=== PATIENT | male | born 1940 | race African-American/Black ===

== ENCOUNTER 2021-01-17 23:45 | Inpatient (IN) ==
[2021-01-18] MEDS ORDERED: SODIUM CHLORIDE 0.9% 500 ML IV STA (00:28)
[2021-01-18 01:59] LABS: Bacteria,Urine Occasional /HPF (Few); Bilirubin,Urine Negative (Negative); Blood, Urine Moderate mg/dL (Negative); Glucose,Urine (UA) Negative (Negative); Hyaline Casts,Urine 6 /LPF (0-3); Ketones,Urine Negative (Negative); Mucus,Urine Occasional /LPF (Occasional); Nitrite,Urine Negative (Negative); Protein,Urine 30 MG/DL; RBC,Urine 76 /HPF (0-4); Urine Appearance CLOUDY (Clear); Urine Color Yellow (Yellow); Urine Specific Gravity 1.017 (1.001-1.035); Urine Urobilinogen < 2.0 EU/DL (0.2-1.0)
[2021-01-18 02:09] LABS: Basophils # 0.1 10*3/uL (0.0-0.2); Basophils % 0.3 % (0.0-0.8); Eosinophils # 0.1 10*3/uL (0.0-0.87); Eosinophils % 0.7 % (0.00-10.9); Hematocrit 55.5 VOL% (42.0-52.0); Hemoglobin 16.3 GM/DL (14.0-18.0); Immature Granulocytes % 0.4 %; Immature Granulocytes Absolute 0.07 #; Lymphocytes # 2.6 10*3/uL (1.4-4.0); Lymphocytes % 16.3 % (21.2-54.2); Mean Corpuscular HGB Conc 29.4 GM/DL (32-36); Mean Platelet Volume 11.5 FL (9.6-12.0); Monocytes % 7.4 % (1.7-12.7); Neutrophils % 74.9 % (38.7-73.9); Platelet Count 327 T/CUMM (130-400); Red Blood Count 6.03 MC/CUMM (3.8-5.5); Red Cell Distribution Width 18.9 % (9.3-17.3); White Blood Count 15.9 T/CUMM (4-12)
[2021-01-18 02:11] LABS: Alanine Aminotransferase 145 U/L (16-61); Albumin 3.1 G/DL (3.4-5.0); Alkaline Phosphatase 102 U/L (45-117); Aspartate Amino Transferase 89 U/L (0-37); Blood Urea Nitrogen 117 MG/DL (7-18); Calcium 9.7 MG/DL (8.5-10.1); Carbon Dioxide 24 MMOL/L (21-32); Estimated Glom Filtration Rate 28 ML/MIN; Glucose 123 MG/DL (74-106); Osmolality,Calculated 362.9 MOS/KG (273-304); Potassium 4.4 MMOL/L (3.5-5.1); Total Protein 9.7 G/DL (6.4-8.2)
[2021-01-18 02:24] LABS: Barbiturates Screen,Urine Negative (Negative); Benzodiazepines Screen,Urine Negative (Negative); Cannabinoid Screen,Urine Negative (Negative); Opiate Screen,Urine Negative (Negative); Phencyclidine Screen,Urine Negative (Negative)
[2021-01-18 02:32] LABS: Sodium 165 MMOL/L (136-145)
[2021-01-18] MEDS ORDERED: LACTATED RINGERS 2,000 ML IV ONE (03:50)
[2021-01-18] MEDS ORDERED: ALBUTEROL 2.5 MG/3 ML NEB RESP TX PRN (03:53)
[2021-01-18] MEDS ORDERED: ONDANSETRON 4 MG/2 ML VIAL IV PRN (03:53)
[2021-01-18] MEDS ORDERED: GLUCAGON 1 MG VIAL IM PRN (03:55)
[2021-01-18] MEDS ORDERED: DEXTROSE 50% 25 GM/50 ML VIAL IV PRN (03:55)
[2021-01-18] MEDS: MEROPENEM 500 MG in SODIUM CHLORIDE 0.9% 100 ML IV SCH ×3 (04:14→20:55)
[2021-01-18] MEDS: LEVOFLOXACIN INJ 750 MG/150 ML PREMIX IV SCH (04:43)
[2021-01-18] MEDS: SODIUM CHLORIDE 0.45% 1,000 ML IV SCH ×2 (06:47→18:03)
[2021-01-18] MEDS: FAMOTIDINE 20 MG/2 ML VIAL IV SCH ×2 (09:59→20:55)
[2021-01-18] MEDS: ATORVASTATIN 80 MG TABLET PER TUBE SCH (11:18)
[2021-01-18] MEDS: ASPIRIN 325 MG TABLET PER TUBE SCH (11:18)
[2021-01-18] MEDS: CLOPIDOGREL 75 MG TABLET PER TUBE SCH (11:18)
[2021-01-19] MEDS: SODIUM CHLORIDE 0.45% 1,000 ML IV SCH (01:45)
[2021-01-19 04:09] LABS: Basophils % 0.3 % (0.0-0.8); Eosinophils # 0.2 10*3/uL (0.0-0.87); Eosinophils % 2.2 % (0.00-10.9); Hematocrit 42.4 VOL% (42.0-52.0); Immature Granulocytes % 0.4 %; Immature Granulocytes Absolute 0.05 #; Lymphocytes # 1.7 10*3/uL (1.4-4.0); Lymphocytes % 15.4 % (21.2-54.2); Mean Corpuscular HGB Conc 30.7 GM/DL (32-36); Mean Platelet Volume 11.4 FL (9.6-12.0); Monocytes % 6.8 % (1.7-12.7); Neutrophils % 74.9 % (38.7-73.9); Red Cell Distribution Width 17.7 % (9.3-17.3)
[2021-01-19 04:17] LABS: Platelet Count 233 T/CUMM (130-400); Red Blood Count 4.61 MC/CUMM (3.8-5.5); White Blood Count 11.1 T/CUMM (4-12)
[2021-01-19] MEDS: MEROPENEM 500 MG in SODIUM CHLORIDE 0.9% 100 ML IV SCH ×3 (04:35→20:05)
[2021-01-19 04:36] LABS: Calcium 8.7 MG/DL (8.5-10.1); Osmolality,Calculated 354.3 MOS/KG (273-304); Potassium 3.3 MMOL/L (3.5-5.1)
[2021-01-19] MEDS ORDERED: POTASSIUM CHLORIDE RIDER 10 MEQ/100 ML PREMIX IV PRN (05:03)
[2021-01-19] MEDS ORDERED: POTASSIUM CHLORIDE RIDER 20 MEQ/100 ML PREMIX IV PRN (05:03)
[2021-01-19] MEDS: POTASSIUM CHLORIDE RIDER 10 MEQ/100 ML PREMIX IV PRN ×4 (05:49→10:31)
[2021-01-19] MEDS: DEXTROSE 5% 1,000 ML IV SCH ×2 (05:50→19:59)
[2021-01-19] MEDS: FAMOTIDINE 20 MG/2 ML VIAL IV SCH ×2 (10:32→20:00)
[2021-01-19] MEDS: ATORVASTATIN 80 MG TABLET PER TUBE SCH (11:48)
[2021-01-19] MEDS: CLOPIDOGREL 75 MG TABLET PER TUBE SCH (11:49)
[2021-01-19] MEDS: ASPIRIN 325 MG TABLET PER TUBE SCH (11:49)
[2021-01-19] MEDS: carvediloL 3.125 MG TABLET PO SCH (21:50)
[2021-01-19] MEDS: MORPHINE 2 MG/1 ML SYRINGE IV PRN (21:54)
[2021-01-19] MEDS ORDERED: hydrALAZINE 20 MG/1 ML VIAL IV PRN (22:30)
[2021-01-20] MEDS: MEROPENEM 500 MG in SODIUM CHLORIDE 0.9% 100 ML IV SCH ×2 (04:20→11:36)
[2021-01-20] MEDS: LEVOFLOXACIN INJ 750 MG/150 ML PREMIX IV SCH (04:20)
[2021-01-20 06:35] LABS: Basophils % 0.1 % (0.0-0.8); Eosinophils # 0.2 10*3/uL (0.0-0.87); Eosinophils % 2.1 % (0.00-10.9); Hematocrit 41.3 VOL% (42.0-52.0); Immature Granulocytes % 0.5 %; Immature Granulocytes Absolute 0.05 #; Lymphocytes # 2.1 10*3/uL (1.4-4.0); Lymphocytes % 19.5 % (21.2-54.2); Mean Corpuscular HGB Conc 31.5 GM/DL (32-36); Mean Corpuscular Volume 89.6 FL (87-102); Mean Platelet Volume 11.3 FL (9.6-12.0); Monocytes % 6.8 % (1.7-12.7); Platelet Count 190 T/CUMM (130-400); Red Blood Count 4.61 MC/CUMM (3.8-5.5); Red Cell Distribution Width 17.2 % (9.3-17.3); White Blood Count 10.7 T/CUMM (4-12)
[2021-01-20 07:00] LABS: Calcium 8.8 MG/DL (8.5-10.1); Potassium 3.5 MMOL/L (3.5-5.1)
[2021-01-20] MEDS: POTASSIUM CHLORIDE RIDER 10 MEQ/100 ML PREMIX IV PRN (07:48)
[2021-01-20] MEDS: carvediloL 3.125 MG TABLET PO SCH ×2 (08:54→21:30)
[2021-01-20] MEDS: amLODIPine 5 MG TABLET PO SCH (08:54)
[2021-01-20] MEDS: ASPIRIN 325 MG TABLET PER TUBE SCH (08:54)
[2021-01-20] MEDS: CLOPIDOGREL 75 MG TABLET PER TUBE SCH (08:54)
[2021-01-20] MEDS: ATORVASTATIN 80 MG TABLET PER TUBE SCH (08:54)
[2021-01-20] MEDS: FAMOTIDINE 20 MG/2 ML VIAL IV SCH ×2 (08:55→21:30)
[2021-01-20] MEDS: POTASSIUM CHLORIDE 20 MEQ PACK PER TUBE PRN ×2 (09:45→11:25)
[2021-01-20] MEDS: TAMSULOSIN 0.4 MG CAPSULE PO SCH (11:25)
[2021-01-20] MEDS: AMPICILLIN INJ 500 MG in SODIUM CHLORIDE 0.9% 100 ML IV SCH ×2 (16:00→23:14)
[2021-01-21] MEDS: AMPICILLIN INJ 500 MG in SODIUM CHLORIDE 0.9% 100 ML IV SCH ×4 (05:25→22:42)
[2021-01-21 05:26] LABS: Basophils % 0.1 % (0.0-0.8); Eosinophils # 0.2 10*3/uL (0.0-0.87); Eosinophils % 2.4 % (0.00-10.9); Hematocrit 38.7 VOL% (42.0-52.0); Immature Granulocytes % 0.6 %; Immature Granulocytes Absolute 0.06 #; Lymphocytes # 2.4 10*3/uL (1.4-4.0); Lymphocytes % 25.2 % (21.2-54.2); Mean Platelet Volume 11.7 FL (9.6-12.0); Monocytes % 5.9 % (1.7-12.7); Neutrophils % 65.8 % (38.7-73.9); Platelet Count 171 T/CUMM (130-400); Red Cell Distribution Width 16.9 % (9.3-17.3); White Blood Count 9.5 T/CUMM (4-12)
[2021-01-21] MEDS: MORPHINE 2 MG/1 ML SYRINGE IV PRN (05:35)
[2021-01-21 05:55] LABS: Calcium 8.4 MG/DL (8.5-10.1); Osmolality,Calculated 303.3 MOS/KG (273-304); Potassium 3.8 MMOL/L (3.5-5.1)
[2021-01-21] MEDS: TAMSULOSIN 0.4 MG CAPSULE PO SCH (06:30)
[2021-01-21] MEDS: CLOPIDOGREL 75 MG TABLET PER TUBE SCH (10:12)
[2021-01-21] MEDS: amLODIPine 5 MG TABLET PO SCH (10:12)
[2021-01-21] MEDS: ASPIRIN 325 MG TABLET PER TUBE SCH (10:12)
[2021-01-21] MEDS: FAMOTIDINE 20 MG/2 ML VIAL IV SCH ×2 (10:12→21:46)
[2021-01-21] MEDS: carvediloL 3.125 MG TABLET PO SCH ×2 (10:12→21:46)
[2021-01-21] MEDS: ATORVASTATIN 80 MG TABLET PER TUBE SCH (10:16)
[2021-01-22] MEDS: AMPICILLIN INJ 500 MG in SODIUM CHLORIDE 0.9% 100 ML IV SCH ×2 (04:19→12:02)
[2021-01-22] MEDS: LEVOFLOXACIN INJ 750 MG/150 ML PREMIX IV SCH (04:55)
[2021-01-22 05:34] LABS: Basophils % 0.2 % (0.0-0.8); Eosinophils # 0.3 10*3/uL (0.0-0.87); Eosinophils % 2.4 % (0.00-10.9); Hematocrit 37.9 VOL% (42.0-52.0); Hemoglobin 11.9 GM/DL (14.0-18.0); Immature Granulocytes % 0.4 %; Immature Granulocytes Absolute 0.04 #; Lymphocytes # 2.5 10*3/uL (1.4-4.0); Mean Corpuscular HGB Conc 31.4 GM/DL (32-36); Mean Corpuscular Volume 86.7 FL (87-102); Monocytes % 6.6 % (1.7-12.7); Neutrophils % 66.4 % (38.7-73.9); Platelet Count 158 T/CUMM (130-400); Red Blood Count 4.37 MC/CUMM (3.8-5.5); Red Cell Distribution Width 16.5 % (9.3-17.3); White Blood Count 10.3 T/CUMM (4-12)
[2021-01-22 06:03] LABS: Calcium 8.3 MG/DL (8.5-10.1); Potassium 3.6 MMOL/L (3.5-5.1)
[2021-01-22] MEDS: FAMOTIDINE 20 MG/2 ML VIAL IV SCH ×2 (09:14→21:50)
[2021-01-22] MEDS: CLOPIDOGREL 75 MG TABLET PER TUBE SCH (09:14)
[2021-01-22] MEDS: carvediloL 3.125 MG TABLET PO SCH (09:14)
[2021-01-22] MEDS: ASPIRIN 325 MG TABLET PER TUBE SCH (09:14)
[2021-01-22] MEDS: ATORVASTATIN 80 MG TABLET PER TUBE SCH (09:14)
[2021-01-22] MEDS: TAMSULOSIN 0.4 MG CAPSULE PO SCH (09:15)
[2021-01-22] MEDS: amLODIPine 5 MG TABLET PO SCH (09:15)
[2021-01-22] MEDS ORDERED: PIPERACILLIN/TAZOBACTAM 3,375 MG in SODIUM CHLORIDE 0.9% 100 ML IV SCH (12:00)
[2021-01-22] MEDS: PIPERACILLIN/TAZOBACTAM 3,375 MG in SODIUM CHLORIDE 0.9% 100 ML IV SCH (21:51)
[2021-01-23] MEDS: carvediloL 3.125 MG TABLET PO SCH ×3 (01:01→20:36)
[2021-01-23] MEDS: PIPERACILLIN/TAZOBACTAM 3,375 MG in SODIUM CHLORIDE 0.9% 100 ML IV SCH ×3 (05:20→20:37)
[2021-01-23 05:39] LABS: Basophils % 0.2 % (0.0-0.8); Eosinophils # 0.2 10*3/uL (0.0-0.87); Eosinophils % 1.9 % (0.00-10.9); Hematocrit 38.7 VOL% (42.0-52.0); Hemoglobin 12.8 GM/DL (14.0-18.0); Immature Granulocytes % 1.1 %; Immature Granulocytes Absolute 0.11 #; Lymphocytes % 19.4 % (21.2-54.2); Mean Corpuscular HGB Conc 33.1 GM/DL (32-36); Mean Corpuscular Volume 84.1 FL (87-102); Mean Platelet Volume 11.4 FL (9.6-12.0); Monocytes % 6.3 % (1.7-12.7); Neutrophils % 71.1 % (38.7-73.9); Platelet Count 157 T/CUMM (130-400); White Blood Count 10.2 T/CUMM (4-12)
[2021-01-23 06:01] LABS: Bilirubin,Total 1.2 MG/DL (0.20-1.00); Calcium 8.3 MG/DL (8.5-10.1); Osmolality,Calculated 286.1 MOS/KG (273-304); Potassium 3.4 MMOL/L (3.5-5.1); Total Protein 7.4 G/DL (6.4-8.2)
[2021-01-23] MEDS: ASPIRIN 325 MG TABLET PER TUBE SCH (09:26)
[2021-01-23] MEDS: TAMSULOSIN 0.4 MG CAPSULE PO SCH (09:26)
[2021-01-23] MEDS: ATORVASTATIN 80 MG TABLET PER TUBE SCH (09:26)
[2021-01-23] MEDS: CLOPIDOGREL 75 MG TABLET PER TUBE SCH (09:26)
[2021-01-23] MEDS: FAMOTIDINE 20 MG/2 ML VIAL IV SCH ×2 (09:26→20:37)
[2021-01-23] MEDS: amLODIPine 5 MG TABLET PO SCH (09:26)
[2021-01-23] MEDS: POTASSIUM CHLORIDE 20 MEQ PACK PER TUBE PRN ×2 (09:26→12:59)
[2021-01-24] MEDS: PIPERACILLIN/TAZOBACTAM 3,375 MG in SODIUM CHLORIDE 0.9% 100 ML IV SCH ×2 (04:26→13:42)
[2021-01-24 07:08] LABS: Basophils % 0.1 % (0.0-0.8); Eosinophils # 0.1 10*3/uL (0.0-0.87); Eosinophils % 1.2 % (0.00-10.9); Hematocrit 37.5 VOL% (42.0-52.0); Hemoglobin 12.5 GM/DL (14.0-18.0); Immature Granulocytes % 0.4 %; Immature Granulocytes Absolute 0.04 #; Lymphocytes # 2.1 10*3/uL (1.4-4.0); Lymphocytes % 20.5 % (21.2-54.2); Mean Corpuscular HGB Conc 33.3 GM/DL (32-36); Mean Corpuscular Volume 83.1 FL (87-102); Mean Platelet Volume 11.6 FL (9.6-12.0); Monocytes % 7.1 % (1.7-12.7); Neutrophils % 70.7 % (38.7-73.9); Platelet Count 172 T/CUMM (130-400); Red Blood Count 4.51 MC/CUMM (3.8-5.5); Red Cell Distribution Width 16.3 % (9.3-17.3); White Blood Count 10.4 T/CUMM (4-12)
[2021-01-24 07:45] LABS: Calcium 8.5 MG/DL (8.5-10.1); Osmolality,Calculated 282.3 MOS/KG (273-304); Potassium 3.6 MMOL/L (3.5-5.1)
[2021-01-24] MEDS: ASPIRIN 325 MG TABLET PER TUBE SCH (10:19)
[2021-01-24] MEDS: amLODIPine 5 MG TABLET PO SCH (10:19)
[2021-01-24] MEDS: TAMSULOSIN 0.4 MG CAPSULE PO SCH (10:19)
[2021-01-24] MEDS: CLOPIDOGREL 75 MG TABLET PER TUBE SCH (10:19)
[2021-01-24] MEDS: carvediloL 3.125 MG TABLET PO SCH ×2 (10:19→21:33)
[2021-01-24] MEDS: ATORVASTATIN 80 MG TABLET PER TUBE SCH (10:19)
[2021-01-24] MEDS: FAMOTIDINE 20 MG/2 ML VIAL IV SCH ×2 (10:22→21:32)
[2021-01-24] MEDS: LEVOFLOXACIN INJ 500 MG/100 ML PREMIX IV SCH (18:49)
[2021-01-25 06:41] LABS: Basophils % 0.2 % (0.0-0.8); Eosinophils # 0.1 10*3/uL (0.0-0.87); Hematocrit 37.6 VOL% (42.0-52.0); Hemoglobin 12.4 GM/DL (14.0-18.0); Immature Granulocytes % 0.4 %; Immature Granulocytes Absolute 0.04 #; Lymphocytes # 2.1 10*3/uL (1.4-4.0); Lymphocytes % 20.9 % (21.2-54.2); Mean Corpuscular Volume 85.1 FL (87-102); Mean Platelet Volume 11.7 FL (9.6-12.0); Monocytes % 8.7 % (1.7-12.7); Neutrophils % 68.8 % (38.7-73.9); Platelet Count 185 T/CUMM (130-400); Red Blood Count 4.42 MC/CUMM (3.8-5.5); Red Cell Distribution Width 16.6 % (9.3-17.3); White Blood Count 10.1 T/CUMM (4-12)
[2021-01-25 07:51] LABS: Albumin 1.9 G/DL (3.4-5.0); Bilirubin,Total 1.3 MG/DL (0.20-1.00); Calcium 8.7 MG/DL (8.5-10.1); Potassium 3.9 MMOL/L (3.5-5.1); Total Protein 7.7 G/DL (6.4-8.2)
[2021-01-25 10:14] LABS: Hepatitis B Surface Ag Quant < 0.10 Index; Hepatitis B Surface Ag Result Non-Reactive (NonReactive); Hepatitis C Virus Ab Quant 0.16 Index; Hepatitis C Virus Ab Result Non-Reactive (NonReactive)
[2021-01-25] MEDS: TAMSULOSIN 0.4 MG CAPSULE PO SCH (10:15)
[2021-01-25] MEDS: amLODIPine 5 MG TABLET PO SCH (10:16)
[2021-01-25] MEDS: carvediloL 3.125 MG TABLET PO SCH ×2 (10:16→20:57)
[2021-01-25] MEDS: CLOPIDOGREL 75 MG TABLET PER TUBE SCH (10:16)
[2021-01-25] MEDS: ASPIRIN 325 MG TABLET PER TUBE SCH (10:16)
[2021-01-25] MEDS: FAMOTIDINE 20 MG/2 ML VIAL IV SCH ×2 (10:24→20:58)
[2021-01-25] MEDS: MORPHINE 2 MG/1 ML SYRINGE IV PRN (10:26)
[2021-01-25] MEDS ORDERED: DEXTROSE 50% 25 GM/50 ML VIAL IV PRN (11:00)
[2021-01-25] MEDS: LEVOFLOXACIN INJ 500 MG/100 ML PREMIX IV SCH (17:44)
[2021-01-26 05:17] LABS: Albumin 1.9 G/DL (3.4-5.0); Bilirubin,Total 0.5 MG/DL (0.20-1.00); Calcium 8.6 MG/DL (8.5-10.1); Potassium 4.1 MMOL/L (3.5-5.1); Total Protein 7.6 G/DL (6.4-8.2)
[2021-01-26] MEDS: FAMOTIDINE 20 MG/2 ML VIAL IV SCH ×2 (09:05→21:41)
[2021-01-26] MEDS: TAMSULOSIN 0.4 MG CAPSULE PO SCH (09:05)
[2021-01-26] MEDS: carvediloL 3.125 MG TABLET PO SCH ×2 (09:05→21:07)
[2021-01-26] MEDS: CLOPIDOGREL 75 MG TABLET PER TUBE SCH ×2 (09:05→09:23)
[2021-01-26] MEDS: ASPIRIN 325 MG TABLET PER TUBE SCH (09:05)
[2021-01-26] MEDS: amLODIPine 5 MG TABLET PO SCH (09:05)
[2021-01-26] MEDS: LEVOFLOXACIN INJ 500 MG/100 ML PREMIX IV SCH (17:30)
[2021-01-27 06:20] LABS: Basophils % 0.1 % (0.0-0.8); Eosinophils # 0.1 10*3/uL (0.0-0.87); Eosinophils % 0.9 % (0.00-10.9); Hematocrit 35.5 VOL% (42.0-52.0); Hemoglobin 11.4 GM/DL (14.0-18.0); Immature Granulocytes % 0.3 %; Immature Granulocytes Absolute 0.03 #; Lymphocytes # 2.2 10*3/uL (1.4-4.0); Lymphocytes % 21.2 % (21.2-54.2); Mean Corpuscular HGB Conc 32.1 GM/DL (32-36); Mean Platelet Volume 11.4 FL (9.6-12.0); Monocytes % 8.5 % (1.7-12.7); Platelet Count 234 T/CUMM (130-400); Red Blood Count 4.13 MC/CUMM (3.8-5.5); Red Cell Distribution Width 16.7 % (9.3-17.3); White Blood Count 10.2 T/CUMM (4-12)
[2021-01-27 06:36] LABS: Calcium 8.7 MG/DL (8.5-10.1); Osmolality,Calculated 288.1 MOS/KG (273-304); Potassium 3.7 MMOL/L (3.5-5.1)
[2021-01-27] MEDS: ASPIRIN 325 MG TABLET PER TUBE SCH (14:46)
[2021-01-27] MEDS: TAMSULOSIN 0.4 MG CAPSULE PO SCH (14:46)
[2021-01-27] MEDS: carvediloL 3.125 MG TABLET PO SCH ×2 (14:46→21:35)
[2021-01-27] MEDS: amLODIPine 5 MG TABLET PO SCH (14:46)
[2021-01-27] MEDS: FAMOTIDINE 20 MG/2 ML VIAL IV SCH ×2 (14:49→21:30)
[2021-01-27] MEDS: LEVOFLOXACIN INJ 500 MG/100 ML PREMIX IV SCH (17:30)
[2021-01-28 06:50] LABS: Basophils % 0.3 % (0.0-0.8); Eosinophils # 0.1 10*3/uL (0.0-0.87); Eosinophils % 0.7 % (0.00-10.9); Hemoglobin 12.5 GM/DL (14.0-18.0); Immature Granulocytes % 0.3 %; Immature Granulocytes Absolute 0.03 #; Lymphocytes # 1.8 10*3/uL (1.4-4.0); Lymphocytes % 17.1 % (21.2-54.2); Mean Corpuscular HGB Conc 32.1 GM/DL (32-36); Mean Corpuscular Volume 85.2 FL (87-102); Mean Platelet Volume 11.2 FL (9.6-12.0); Monocytes % 6.3 % (1.7-12.7); Neutrophils % 75.3 % (38.7-73.9); Platelet Count 270 T/CUMM (130-400); Red Blood Count 4.58 MC/CUMM (3.8-5.5); Red Cell Distribution Width 16.7 % (9.3-17.3); White Blood Count 10.7 T/CUMM (4-12)
[2021-01-28 07:02] LABS: Bilirubin,Total 1.5 MG/DL (0.20-1.00); Calcium 8.8 MG/DL (8.5-10.1); Osmolality,Calculated 291.8 MOS/KG (273-304); Potassium 3.9 MMOL/L (3.5-5.1); Total Protein 7.9 G/DL (6.4-8.2)
[2021-01-28] MEDS: carvediloL 3.125 MG TABLET PO SCH ×2 (11:08→21:32)
[2021-01-28] MEDS: amLODIPine 5 MG TABLET PO SCH (11:08)
[2021-01-28] MEDS: TAMSULOSIN 0.4 MG CAPSULE PO SCH (11:09)
[2021-01-28] MEDS: ASPIRIN 325 MG TABLET PER TUBE SCH (11:09)
[2021-01-28] MEDS: FAMOTIDINE 20 MG/2 ML VIAL IV SCH ×2 (11:19→21:32)
[2021-01-28] MEDS: LEVOFLOXACIN INJ 500 MG/100 ML PREMIX IV SCH (17:40)
[2021-01-29 06:05] LABS: Basophils % 0.2 % (0.0-0.8); Eosinophils # 0.1 10*3/uL (0.0-0.87); Eosinophils % 0.8 % (0.00-10.9); Hematocrit 37.4 VOL% (42.0-52.0); Immature Granulocytes % 0.7 %; Immature Granulocytes Absolute 0.08 #; Lymphocytes # 2.2 10*3/uL (1.4-4.0); Lymphocytes % 19.8 % (21.2-54.2); Mean Corpuscular HGB Conc 32.1 GM/DL (32-36); Mean Corpuscular Volume 84.8 FL (87-102); Mean Platelet Volume 10.7 FL (9.6-12.0); Monocytes % 6.3 % (1.7-12.7); Neutrophils % 72.2 % (38.7-73.9); Platelet Count 325 T/CUMM (130-400); Red Blood Count 4.41 MC/CUMM (3.8-5.5); Red Cell Distribution Width 16.6 % (9.3-17.3)
[2021-01-29 06:24] LABS: Albumin 1.8 G/DL (3.4-5.0); Bilirubin,Total 0.6 MG/DL (0.20-1.00); Calcium 8.5 MG/DL (8.5-10.1); Potassium 3.8 MMOL/L (3.5-5.1); Total Protein 7.6 G/DL (6.4-8.2)
[2021-01-29] MEDS: FAMOTIDINE 20 MG/2 ML VIAL IV SCH ×2 (10:38→20:14)
[2021-01-29] MEDS: amLODIPine 5 MG TABLET PO SCH (10:43)
[2021-01-29] MEDS: carvediloL 3.125 MG TABLET PO SCH ×2 (10:43→20:14)
[2021-01-29] MEDS: TAMSULOSIN 0.4 MG CAPSULE PO SCH (10:43)
[2021-01-29] MEDS: ASPIRIN 325 MG TABLET PER TUBE SCH (10:43)
[2021-01-29] MEDS: LEVOFLOXACIN INJ 500 MG/100 ML PREMIX IV SCH (17:50)
[2021-01-30 06:10] LABS: Basophils % 0.2 % (0.0-0.8); Eosinophils # 0.1 10*3/uL (0.0-0.87); Eosinophils % 0.8 % (0.00-10.9); Hematocrit 36.9 VOL% (42.0-52.0); Hemoglobin 11.9 GM/DL (14.0-18.0); Immature Granulocytes % 0.5 %; Immature Granulocytes Absolute 0.05 #; Lymphocytes # 2.2 10*3/uL (1.4-4.0); Lymphocytes % 20.7 % (21.2-54.2); Mean Corpuscular HGB Conc 32.2 GM/DL (32-36); Mean Corpuscular Volume 84.8 FL (87-102); Mean Platelet Volume 10.3 FL (9.6-12.0); Monocytes % 5.6 % (1.7-12.7); Neutrophils % 72.2 % (38.7-73.9); Platelet Count 313 T/CUMM (130-400); Red Blood Count 4.35 MC/CUMM (3.8-5.5); Red Cell Distribution Width 16.8 % (9.3-17.3); White Blood Count 10.7 T/CUMM (4-12)
[2021-01-30 06:22] LABS: PT Patient Result 11.7 SECS (10.5-12.0)
[2021-01-30 06:41] LABS: Albumin 1.7 G/DL (3.4-5.0); Bilirubin,Total 1.3 MG/DL (0.20-1.00); Calcium 8.2 MG/DL (8.5-10.1); Osmolality,Calculated 288.1 MOS/KG (273-304); Potassium 3.6 MMOL/L (3.5-5.1); Total Protein 7.3 G/DL (6.4-8.2)
[2021-01-30] MEDS: LACTATED RINGERS 1,000 ML IV SCH (07:51)
[2021-01-30] MEDS ORDERED: propofoL 200 MG/20 ML VIAL IV ONE (07:59)
[2021-01-30] MEDS ORDERED: ETOMIDATE 20 MG/10 ML VIAL IV ONE (07:59)
[2021-01-30] MEDS ORDERED: LIDOCAINE 2% 5 ML VIAL ONE (07:59)
[2021-01-30] MEDS ORDERED: PHENYLEPHRINE 1 MG/10 ML SYRINGE IV ONE (08:24)
[2021-01-30] MEDS ORDERED: FLUCONAZOLE INJ 100 MG/50 ML PREMIX IV ONE ×2 (09:58→12:00)
[2021-01-30] MEDS: carvediloL 3.125 MG TABLET PO SCH ×2 (10:37→21:12)
[2021-01-30] MEDS: ASPIRIN 325 MG TABLET PER TUBE SCH (10:37)
[2021-01-30] MEDS: amLODIPine 5 MG TABLET PO SCH (10:37)
[2021-01-30] MEDS: TAMSULOSIN 0.4 MG CAPSULE PO SCH (10:37)
[2021-01-30] MEDS: FAMOTIDINE 20 MG/2 ML VIAL IV SCH ×2 (10:39→21:11)
[2021-01-31 06:11] LABS: Calcium 8.4 MG/DL (8.5-10.1); Osmolality,Calculated 276.8 MOS/KG (273-304); Potassium 3.8 MMOL/L (3.5-5.1)
[2021-01-31 07:29] LABS: Basophils % 0.2 % (0.0-0.8); Eosinophils # 0.1 10*3/uL (0.0-0.87); Eosinophils % 0.9 % (0.00-10.9); Hematocrit 34.3 VOL% (42.0-52.0); Hemoglobin 11.5 GM/DL (14.0-18.0); Immature Granulocytes % 0.3 %; Immature Granulocytes Absolute 0.04 #; Lymphocytes # 2.4 10*3/uL (1.4-4.0); Lymphocytes % 20.9 % (21.2-54.2); Mean Corpuscular HGB Conc 33.5 GM/DL (32-36); Mean Corpuscular Volume 83.7 FL (87-102); Mean Platelet Volume 9.9 FL (9.6-12.0); Monocytes % 6.5 % (1.7-12.7); Neutrophils % 71.2 % (38.7-73.9); Platelet Count 307 T/CUMM (130-400); Red Cell Distribution Width 16.8 % (9.3-17.3); White Blood Count 11.6 T/CUMM (4-12)
[2021-01-31] MEDS: carvediloL 3.125 MG TABLET PO SCH ×2 (09:16→21:59)
[2021-01-31] MEDS: FAMOTIDINE 20 MG/2 ML VIAL IV SCH ×2 (09:16→22:03)
[2021-01-31] MEDS: TAMSULOSIN 0.4 MG CAPSULE PO SCH (09:16)
[2021-01-31] MEDS: LACTATED RINGERS 1,000 ML IV SCH (09:16)
[2021-01-31] MEDS: amLODIPine 5 MG TABLET PO SCH (09:16)
[2021-01-31] MEDS: ASPIRIN 325 MG TABLET PER TUBE SCH (09:17)
[2021-02-01] MEDS: TAMSULOSIN 0.4 MG CAPSULE PO SCH (10:05)
[2021-02-01] MEDS: amLODIPine 5 MG TABLET PO SCH (10:05)
[2021-02-01] MEDS: carvediloL 3.125 MG TABLET PO SCH ×2 (10:05→21:23)
[2021-02-01] MEDS: FAMOTIDINE 20 MG/2 ML VIAL IV SCH ×2 (10:05→21:33)
[2021-02-01] MEDS: LACTATED RINGERS 1,000 ML IV SCH (10:06)
[2021-02-02 06:03] LABS: Basophils % 0.2 % (0.0-0.8); Eosinophils # 0.1 10*3/uL (0.0-0.87); Eosinophils % 0.9 % (0.00-10.9); Hematocrit 33.4 VOL% (42.0-52.0); Hemoglobin 10.8 GM/DL (14.0-18.0); Immature Granulocytes % 0.3 %; Immature Granulocytes Absolute 0.04 #; Lymphocytes # 2.2 10*3/uL (1.4-4.0); Lymphocytes % 19.2 % (21.2-54.2); Mean Corpuscular HGB Conc 32.3 GM/DL (32-36); Mean Corpuscular Volume 84.3 FL (87-102); Mean Platelet Volume 9.6 FL (9.6-12.0); Monocytes % 7.2 % (1.7-12.7); Neutrophils % 72.2 % (38.7-73.9); Platelet Count 328 T/CUMM (130-400); Red Blood Count 3.96 MC/CUMM (3.8-5.5); Red Cell Distribution Width 16.8 % (9.3-17.3); White Blood Count 11.6 T/CUMM (4-12)
[2021-02-02 06:24] LABS: Albumin 1.5 G/DL (3.4-5.0); Bilirubin,Total 0.5 MG/DL (0.20-1.00); Calcium 8.1 MG/DL (8.5-10.1); Osmolality,Calculated 273.2 MOS/KG (273-304); Potassium 4.2 MMOL/L (3.5-5.1); Total Protein 7.3 G/DL (6.4-8.2)
[2021-02-02] MEDS: TAMSULOSIN 0.4 MG CAPSULE PO SCH (09:42)
[2021-02-02] MEDS: FAMOTIDINE 20 MG/2 ML VIAL IV SCH ×2 (09:42→21:07)
[2021-02-02] MEDS: amLODIPine 5 MG TABLET PO SCH (09:43)
[2021-02-02] MEDS: carvediloL 3.125 MG TABLET PO SCH ×2 (09:44→21:07)
[2021-02-02] MEDS: LACTATED RINGERS 1,000 ML IV SCH (09:44)
[2021-02-02 12:56] LABS: Lymphocytes,CSF 100 %; Red Blood Cell,CSF 28 C/CUMM; White Blood Cell,CSF 8 C/CUMM
[2021-02-02 12:57] LABS: Appearance,CSF Clear
[2021-02-02 13:15] LABS: Glucose,CSF 66 MG/DL (40-70)
[2021-02-02 17:00] VITALS: BP 133/53
[2021-02-05 14:16] LABS: M. Tuberculosis PCR Result Negative (Negative); M. Tuberculosis PCR Source CSF
== END 2021-02-02 21:26 | DRG 64 ==
LOC: N.ED 23:45 → SUATTDRO 01-18 03:23 → N.EDINP 01-18 03:23 → N.ICU 01-18 18:29 → N.4E 01-20 12:41 → N.TELES 01-23 15:45
PROVIDERS: ADMIT Internal Medicine; ATTEND Internal Medicine
PROC: EGDWPEG (ICD-10-PCS; 2021-01-30 07:05)